=== PATIENT | male | born 1955 | race Two or more races ===

== ENCOUNTER 2024-06-18 09:40 | Inpatient (IN) | payer MEDICAID, SELFPAY ==
[2024-06-18] VITALS (18 sets, daily range): BP systolic 114–160; BP diastolic 74–109; PULSE 61–104; RESP 12–98; TEMP 35.9–36.7; O2SAT 92–99; BMI 25.7
--- NOTE | 2024-06-18 09:46 | EKG_ITS ---
[facility] Test Date: 2024-06-18 Pat Name: IVONNE MARTEL Department: Room: - Gender: Male Medicine Aide: : 1965-04-04 Requested By: ED Temporary Provider Order Number: [id number] Reading MD: ED Temporary Provider Measurements Intervals [place] Rate: 99 P: 59 AK: 184 QRS: -2 QRSD: 172 T: 143 QT: 400 QTc: 514 Interpretive Statements SINUS RHYTHM POSSIBLE LEFT ATRIAL ENLARGEMENT [-0.1mV P-WAVE IN V1/V2] LEFT BUNDLE BRANCH BLOCK [120+ ms QRS DURATION, 80+ ms Q/S IN V1/V2, 85+ ms R IN I/aVL/V5/V6] No previous ECG available for comparison /store/S0/[id number].pdf
--- NOTE | 2024-06-18 09:57 | XR_ITS ---
Examination: PA lateral chest 2 views TECHNIQUE: Upright PA lateral chest 2 views Exam date and time: June 18, 2024 1035 hours INDICATIONS: Chest pain shortness of breath beginning 2 days ago. FINDINGS: Mild prominence cardiac contour Prominent vascular congestion including central vascular engorgement Fluid in the fissures on the lateral view Significant osteopenia IMPRESSION: Early CHF
--- NOTE | 2024-06-18 09:57 | PD.EDRME ---
Rapid Medical Screening Exam RME Arrival date/time: 06/18/24 09:40 59-year-old male presents to the emergency department for complaints of chest pain and pressure Chief Complaint: Chest Pain Vital signs: Vital Signs Temperature 98.1 F 06/18/24 09:47 Pulse Rate 104 H 06/18/24 09:47 Respiratory Rate 19 06/18/24 09:47 Blood Pressure 132/81 H 06/18/24 09:47 Pulse Oximetry (%) 97 06/18/24 09:47 Oxygen Delivery Method Room Air 06/18/24 09:47
--- NOTE | 2024-06-18 10:15 | PC.NURSE ---
in to assess pt. pt with c/o left sided chest pain that started yesterday. states pain is worse with deep breaths and coughing and feels sob at rest. pt without further complaints at this time. orders received and initiated. call light placed within reach. at bedside. plan of care ongoing.
[2024-06-18 10:24] LABS: Basophils % (Auto) 0 % (0-2.5); Eosinophils % (Auto) 1 % (0-10); Hematocrit 36.7 % (41.0-53.0); Immature Granulocytes % (Auto) 0 % (0-0); Immature Granulocytes Auto 0.02 Thou/mm3 (0.00-0.00); Lymphocytes # (Auto) 0.4 Thou/mm3 (1.0-4.8); Lymphocytes % (Auto) 7 % (10-50); Mean Corpuscular HGB Conc 32.7 g/dl (31.0-37.0); Mean Corpuscular Hemoglobin 30.5 pg (25.0-35.0); Mean Corpuscular Volume 93 fL (80-100); Monocytes # (Auto) 0.3 Thou/mm3 (0.0-0.8); Monocytes % (Auto) 6 % (0-12); Neutrophils # (Auto) 4.8 Thou/mm3 (1.8-7.7); Neutrophils % (Auto) 86 % (37-80); Nucleated Red Blood Cell % 0 /100 WBC (0); Platelet Count 161 Thou/mm3 (140-440); RDW Standard Deviation 50.6 fL (35.1-43.9); Red Blood Count 3.93 Miln/mm3 (4.50-5.90); White Blood Count 5.6 Thou/mm3 (3.8-10.6)
[2024-06-18 10:53] LABS: B-Type Natriuretic Peptide 788 pg/mL (0-100)
[2024-06-18 10:54] LABS: Alanine Aminotransferase 11 U/L (10-49); Albumin, Serum 4.2 gm/dL (3.5-5.0); Albumin/Globulin Ratio 1.6 (1.2-2.2); Alkaline Phosphatase 80 U/L (46-116); Anion Gap 7 (7-16); Aspartate Amino Transferase 12 U/L (0-34); BUN/Creatinine Ratio 14 Ratio (12-20); Bilirubin,Total 1.2 mg/dL (0.3-1.2); Blood Urea Nitrogen 22 mg/dL (9-23); Calcium 9.1 mg/dL (8.3-10.6); Calcium (Corrected) 9.1 mg/dL (8.5-10.1); Carbon Dioxide 25.9 mMol/L (20.0-31.0); Chloride 107 mMol/L (98-107); Creatinine (Component) 1.6 mg/dL (0.6-1.3); Globulin 2.6 gm/dL (2.3-3.5); Glucose 316 mg/dL (74-106); Magnesium 1.5 mg/dL (1.6-2.6); Osmolality,Calculated 294 (275-295); Sodium 140 mMol/L (136-145); Total Protein 6.8 gm/dL (5.7-8.2); eGFR 49 See Note
[2024-06-18 10:59] LABS: Troponin I 0.135 ng/mL (0.0-0.045)
--- NOTE | 2024-06-18 11:25 | EDNOTE_ITS ---
ED Chest Pain RME/HPI General Chief Complaint: Chest Pain Stated Complaint: CP AND SOB Time Seen by Provider: 06/18/24 11:01 Arrival date/time: 06/18/24 09:40 RME / HPI RME / HPI narrative: 06/18/24 09:40 59-year-old male presents to the emergency department for complaints of chest pain and pressure DR. RILEY MAIN ED EVALUATION: 59 year old male with history of hypertension and diabetes presents to the ED for complaint of chest pain beginning at 5pm last night and remaining constant since. Described as pressure in sensation that is located most to the center and left side of chest. Initially rated as severe and while in the ED is rated as mild. Accompanied by shortness of breath described as I feel like I'm suffocating , which he reports was exacerbated with laying down and slightly improved with sitting up. Patient mentioned he had experienced chest pain 2 years ago(not to this severity) and was evaluated by claims examiner in [place] who performed an angiogram. States during that time was told one of the arteries was starting to become clogged and given a medication to take for only 2 months. Patient does not recall the name of medications. Denies following up with claims examiner or subsequent episodes of pain since. Denies any anticoagulation use. No fevers, chills, sweats, or recent illness. Related Data Home Medications ?Medication ?Instructions ?Recorded ?Confirmed enalapril maleate 10 mg tablet 10 mg PO Q12H 06/18/24 06/18/24 glyburide 5 mg tablet 5 mg PO BID 06/18/24 5 metformin 850 mg tablet 850 mg PO BID 06/18/2406/18 Allergies Allergy/AdvReac Type Severity Reaction Status Date / Time No Known Allergies Allergy Verified 06/18/24 09:44 Review of Systems Review of Systems Narrative Review of Systems: Gen: No fever, no chills, no weight loss EYES: No discharge, no visual changes, no pain HEENT: No ear pain, no congestion, no sore throat PULM: +shortness of breath, no cough CV: +chest pain, no palpitations, no chest tightness GI: No nausea, no vomiting, no diarrhea, no pain, no constipation : No frequency, no urgency,? no dysuria Musc/skel: No joint pain, no back pain Skin: No rash, no ecchymosis, no lesions Neuro: No weakness, no headache Past Medical History Past Medical History CARDIAC: Positive Hypercholesterolemia; Negative Congestive Heart Failure RESPIRATORY: Negative Chronic Obstructive Pulmonary Disease (COPD) GENITOURINARY: Positive Benign Prostatic Hyperplasia; Negative Renal Disease ENDOCRINE: Positive Diabetes Mellitus Type 2; Negative Diabetes Mellitus Type 1 Social History SMOKING STATUS: Never smoker ED Exam Narrative Physical exam: GENERAL APPEARANCE: AxOx4, no obvious distress, nontoxic appearing HEENT: NC, AT. MMM. EOMI, clear conjunctiva, oropharynx clear. NECK: Supple without lymphadenopathy. No stiffness or restricted ROM. HEART: Normal rate and regular rhythm, normal S1/S1, no m/r/g LUNGS: CTAB, moving air well. No crackles or wheezes are heard. ABDOMEN: Soft, nontender, nondistended with good bowel sounds heard. BACK: No midline C/T/L spine pain or deformity, No CVAT, no obvious deformity. EXTREMITIES: Without cyanosis, clubbing or edema. MUSCULOSKELETAL: FROM of all major joints, no chest tenderness NEUROLOGICAL: Grossly nonfocal. Alert and oriented, moving all 4 extremities. CN not formally tested but appear grossly intact. Skin: Warm and dry without any rash. Course Course Course Narrative: chest xray ordered to help determine etiology of chest pain. Quality Measures none Orders Category Date Time Status Admit to Inpatient Status Routine Admission 06/18/24 11:19 Active Long Winder Tender NOW Care 06/18/24 09:56 Active EKG (ED ONLY) *Do not use* NOW Care 06/18/24 09:46 Completed Notify provider NEEDED Care 06/18/24 11:19 Active Notify provider NOW Care 06/18/24 11:13 Active EKG (ED Only) Stat Exams 06/18/24 09:46 Draft XR chest 2V Stat Exams 06/18/24 09:57 Completed B-Type Natriuretic Peptide Stat Lab 06/18/24 10:17 Completed CBC Stat Lab 06/18/24 10:17 Completed Comprehensive Metabolic Panel Stat Lab 06/18/24 10:17 Completed Magnesium Stat Lab 06/18/24 10:17 Completed Partial Thromboplastin Time AM DRAW Lab 06/20/24 05:00 Ordered Prothrombin Time with INR AM DRAW Lab 06/20/24 05:00 Ordered Troponin I Stat Lab 06/18/24 10:17 Completed Aspirin Med 06/18/24 11:09 Discontinued 325 mg PO X1 ONE Heparin Inj Med 06/18/24 11:12 Discontinued 4,000 unit IV X1 ONE Heparin/D5w 25K 250 ML Ivpb [Heparin in D5w Ivpb] Med 06/18/24 11:15 Active 25,000 unit in 250 ml IV 12 units/kg/hr Reevaluation(s) Reevaluation #1: We reviewed all the results, analysis, and treatment plans. Patient is amenable to admission. Time: 11:10 Vital Signs Vital signs: Vital Signs Temperature 98.1 F 06/18/24 09:47 Pulse Rate 104 H 06/18/24 09:47 Respiratory Rate 19 06/18/24 09:47 Blood Pressure 132/81 H 06/18/24 09:47 Pulse Oximetry (%) 97 06/18/24 09:47 Oxygen Delivery Method Room Air 06/18/24 09:47 Pulse ox is 97% on room air which is adequate. Chest Pain MDM Narrative MDM Narrative:: Mr. Lopez presents to the emergency department with a reported history of coronary artery disease (out of country [facility]) who presents with substernal chest pain with a left bundle branch block, no ST changes in the setting of no pr evious EKGs for comparison. Troponin is also significant for an ischemic event, concerning for an NSTEMI. Case was discussed with cardiology with plans for admission for further workup, catheterization. Domenica Henderson am scribing for and in the presence of Dr. Riley. Patient data External records reviewed:: [facility] previous records (Per EMR review, no previous visits for review ) Clinical information provided by:: patient Social determinants that could affect healthcare access:: none Patient has the following chronic illnesses:: Hypertension, diabetes How is presenting disease/condition affected by chronic disease/condition?: exacerbated by Evaluation data The following diagnostics were reviewed and interpreted by me:: lab results, radiology exam(s) and EKG tracing(s) (EKG @ 09:50 AM. Sinus rhyhtm, rate 99, left bundle branch block. ) Lab and/or radiology exams considered but not ordered:: None Interpretation Summary: Examination: PA lateral chest 2 views Exam date and time: June 18, 2024 1035 hours INDICATIONS: Chest pain shortness of breath beginning 2 days ago. FINDINGS: Mild prominence cardiac contour Prominent vascular congestion including central vascular engorgement Fluid in the fissures on the lateral view Significant osteopenia IMPRESSION: Early CHF Dictated By: Sage Sepulveda MD Signed By: <Electronically signed by Sage Sepulveda MD in [place]> 06/18/24 1114 Medications / Prescriptions Medications or Prescriptions considered but not ordered:: None Medication administrations:: Medication Administration History Acetaminophen (Acetaminophen 325 Mg Tablet) 650 mg PO Q6H PRN PRN Reason: Pain 1-3 or Fever >100.3 Stop: 07/18/24 12:01 Aspirin (Aspirin Ec 81 Mg Tabec) 81 mg PO QDAY KALLI Stop: 07/19/24 08:59 Atorvastatin Calcium (Atorvastatin Calcium 20 Mg Tablet) 80 mg PO HS KALLI Stop: 07/19/24 20:59 Dextrose (Dextrose 50%-Water Inj 50 Ml Syringe) 25 ml IV Q15MIN PRN PRN Reason: BG 50-70 responsive npo pt Stop: 07/18/24 13:15 Dextrose (Dextrose 50%-Water Inj 50 Ml Syringe) 50 ml IV Q15MIN PRN PRN Reason: BG <50 OR BG <70 & pt unresponsive Stop: 07/18/24 13:15 Glucagon (Glucagon Inj 1 Mg Vial) 1 mg IM Q15MIN PRN PRN Reason: BG <70, and no IV access Hydralazine HCl (Hydralazine Inj 20 Mg/Ml Vial) 10 mg IV Q4HR PRN PRN Reason: Hypertension Stop: 07/18/24 16:44 Heparin Sodium/Dextrose (Heparin In D5w Ivpb) 25,000 unit in 250 mls @ 9.36 mls/hr IV .Q24H KALLI; Protocol Stop: 07/02/24 11:14 Last Titration: 06/19/24 06:36 Dose: 16 units/kg/hr, 12.48 mls/hr Documented By: MORENO Co-signed By: WO Titration: 06/18/24 23:34 Dose: 16 units/kg/hr, 12.48 mls/hr Documented By: MORENO Co-signed By: Admin: 06/18/24 17:25 Dose: 12 units/kg/hr, 9.36 mls/hr Documented By: GENARO Co-signed By: EG Insulin Human Lispro (Insulin Lispro (Admelog) 1 Unit/0.01 Ml Unit) 0 unit SC ACHS KALLI; Protocol Stop: 07/18/24 20:59 Last Admin: 06/18/24 20:28 Dose: 3 unit Documented By: MORENO Co-signed By: Metoprolol Tartrate (Metoprolol Tartrate 25 Mg Tablet) 25 mg PO BID KALLI Stop: 07/18/24 13:14 Last Admin: 06/18/24 20:23 Dose: 25 mg Documented By: MORENO Ondansetron HCl (Ondansetron Inj 2 Mg/Ml Inj 2 Ml) 4 mg IV Q6H PRN; Protocol PRN Reason: NAUSEA OR VOMITING Stop: 07/18/24 12:01 Pantoprazole Sodium (Pantoprazole 40 Mg Tablet) 40 mg PO QDAY [facility] Stop: 07/18/24 12:14 Last Admin: 06/18/24 13:22 Dose: 40 mg Documented By: Sennosides (Senna Tablet) 1 tab PO QDAY PRN; Protocol PRN Reason: constipation Stop: 07/18/24 12:01 Discontinued Medications Aspirin (Aspirin 325 Mg Tablet) 325 mg PO X1 ONE Stop: 06/18/24 11:10 Last Admin: 06/18/24 12:02 Dose: 325 mg Documented By: ENRICO Atorvastatin Calcium (Atorvastatin Calcium 20 Mg Tablet) 80 mg PO X1 ONE Stop: 06/18/24 21:01 Last Admin: 06/18/24 20:27 Dose: Not Given Documented By: MORENO Non-Admin Reason: documentted on another one4 Atropine Sulfate (Atropine Sulf Inj 1 Mg/Ml Vial) Confirm Administered Dose 1 mg .ROUTE .STK-MED ONE Stop: 06/18/24 13:49 Last Admin: 06/18/24 17:34 Dose: Not Given Documented By: GENARO Non-Admin Reason: not needed Bivalirudin (Bivalirudin Inj 250 Mg Vial) Confirm Administered Dose 250 mg IV .STK-MED ONE Stop: 06/18/24 13:49 Last Admin: 06/18/24 17:35 Dose: Not Given Documented By: GENARO Non-Admin Reason: not needed Nitroglycerin 50 mg/ Sodium (Chloride 240 ml) 0 mg INTRA-LEONOR X1 ONE Stop: 06/18/24 13:01 Last Admin: 06/18/24 19:23 Dose: Not Given Documented By: MORENO Non-Admin Reason: in ed Diazepam (Diazepam 5 Mg Tablet) Confirm Administered Dose 5 mg .ROUTE .STK-MED ONE Stop: 06/18/24 13:25 Last Admin: 06/18/24 17:34 Dose: Not Given Documented By: GENARO Non-Admin Reason: Duplicate Medication on eMAR Epinephrine HCl (Epinephrine Inj 0.1 Mg/Ml Syringe 10ml) Confirm Administered Dose 1 mg .ROUTE .STK-MED ONE Stop: 06/18/24 13:50 Last Admin: 06/18/24 17:35 Dose: Not Given Documented By: LS Non-Admin Reason: not needed Fentanyl Citrate (Fentanyl Cit Inj 50 Mcg/Ml Amp 2ml) Confirm Administered Dose 100 mcg .ROUTE .STK-MED ONE Stop: 06/18/24 13:49 Last Admin: 06/18/24 17:35 Dose: Not Given Documented By: LS Non-Admin Reason: Duplicate Medication on eMAR Flumazenil (Flumazenil Inj 0.1 Mg/Ml Vial 10 Ml) Confirm Administered Dose 1 mg .ROUTE .STK-MED ONE Stop: 06/18/24 13:50 Last Admin: 06/18/24 17:35 Dose: Not Given Documented By: GENARO Non-Admin Reason: not needed Heparin Sodium (Porcine) (Heparin Sod Inj 5000 Unit/Ml Vial) 4,000 unit IV X1 ONE; Protocol Stop: 06/18/24 11:13 Last Admin: 06/18/24 13:34 Dose: 4,000 unit Documented By: Co-signed By: LENNY Heparin Sodium (Porcine) (Heparin Sod Inj 1000 Unit/Ml Vial 10 Ml) Confirm Adm inistered Dose 10,000 unit .ROUTE .STK-MED ONE Stop: 06/18/24 13:14 Last Admin: 06/18/24 13:22 Dose: 10,000 unit Documented By: Co-signed By: EG Heparin Sodium (Porcine) (Heparin Sod Inj 1000 Unit/Ml Vial 10 Ml) Confirm Administered Dose 20,000 unit .ROUTE .STK-MED ONE Stop: 06/18/24 13:50 Last Admin: 06/18/24 17:35 Dose: Not Given Documented By: LS Non-Admin Reason: Duplicate Medication on eMAR Heparin Sodium (Porcine) (Heparin Sod Inj 5000 Unit/Ml Vial) 4,000 unit IV PRN ONE Stop: 06/18/24 23:37 Last Admin: 06/18/24 23:45 Dose: 4,000 unit Documented By: MORENO Co-signed By: Magnesium Sulfate (Magnesium Sulfate Ivpb) 2 gm in 50 mls @ 25 mls/hr IV X1 ONE Stop: 06/18/24 14:11 Last Infusion: 06/19/24 01:05 Dose: Infused Documented By: Admin: 06/18/24 13:22 Dose: 25 mls/hr Documented By: Sterile Water (Sterile Water) Confirm Administered Dose 10 mls @ ud .ROUTE .STK- MED ONE Stop: 06/18/24 13:50 Last Admin: 06/18/24 17:36 Dose: Not Given Documented By: LS Non-Admin Reason: not needed Magnesium Sulfate (Magnesium Sulfate Ivpb) 4 gm in 50 mls @ 12.5 mls/hr IV X1 ONE Stop: 06/19/24 00:52 Last Admin: 06/18/24 21:24 Dose: 12.5 mls/hr Documented By: MORENO Insulin Human Lispro (Insulin Lispro (Admelog) 1 Unit/0.01 Ml Unit) 0 unit SC Q6HR KALLI; Protocol Stop: 07/18/24 17:59 Lidocaine HCl (Lidocaine Inj Pf 1% 30 Ml Vial) Confirm Administered Dose 30 ml .ROUTE .STK-MED ONE Stop: 06/18/24 13:50 Last Admin: 06/18/24 17:35 Dose: Not Given Documented By: LS Non-Admin Reason: Duplicate Medication on eMAR Metoprolol Tartrate (Metoprolol Tartrate 25 Mg Tablet) 25 mg PO BID [facility] Stop: 07/18/24 20:59 Midazolam HCl (Midazolam Inj 1 Mg/Ml Vial 2 Ml) Confirm Administered Dose 2 mg .ROUTE .STK-MED ONE Stop: 06/18/24 13:49 Last Admin: 06/18/24 17:35 Dose: Not Given Documented By: LS Non-Admin Reason: Duplicate Medication on eMAR Naloxone HCl (Naloxone Inj 0.4 Mg/Ml Vial) Confirm Administered Dose 0.4 mg .ROUTE .STK-MED ONE Stop: 06/18/24 13:49 Last Admin: 06/18/24 17:35 Dose: Not Given Documented By: LS Non-Admin Reason: not needed Phenylephrine HCl (Phenylephrine Inj In Ns 100 Mcg/Ml 10 Ml Syringe) Confirm Administered Dose 1,000 mcg .ROUTE .STK-MED ONE Stop: 06/18/24 13:50 Last Admin: 06/18/24 17:36 Dose: Not Given Documented By: GENARO Non-Admin Reason: not needed Verapamil HCl (Verapamil Inj 2.5 Mg/Ml Vial 2 Ml) Confirm Administered Dose 5 mg .ROUTE .STK-MED ONE Stop: 06/18/24 13:50 Last Admin: 06/18/24 17:36 Dose: Not Given Documented By: GENARO Non-Admin Reason: Duplicate Medication on eMAR See above Consultations Consultation(s) initiated? (list below): Yes Consultation #1 (Physician, Specialty, Details): I spoke with claims examiner Dr. Cisneros. We reviewed the EKG and agrees the patient had a left bundle branch block. No previous EKG's to compare to. He agrees to consult. Will start patient on Aspirin and Heparin. Time: 11:08 Consultation #2 (Physician, Specialty, Details): I spoke with resident Dr. Sweeney working with Dr. Collins. Discussed patients PMHx, HPI, ED course, exam findings, labs, and radiology results. The hospitalist agree to accept the patient for admission. Time: 11:10 Diagnosis Most likely diagnosis given after review of the tests above:: NSTEMI CHF Admission Indicated Admission indicated?: indicated Admission Request Was there a request for admission?: Yes Admission Attestation Admission request attestation: Discussed case with [] from Hospitalist service regarding admission. Discussed patients ED course, exam findings, labs, and radiology results. The Hospitalist [agrees,declines] to accept the patient for admission. Disposition Plan Disposition Plan: Admit Critical Care Time Critical Care Time Critical Care Time: Yes Total Critical Care Time (min.): 35 Attestation: Excluding billable procedures for the rapid response, analysis, management, deliberation with specialist, treatment, and documentation of at the very possible risk of cardiopulmonary decompensation or . Discharge Plan Plan Patient Disposition: Admit Acute Care w/in Hospital Problem List Clinical Impression: Non-ST elevation CA (NSTEMI), CHF (congestive heart failure)
[2024-06-18 11:57] LABS: Partial Thromboplastin Time 25.3 Seconds (22.0-36.0)
[2024-06-18] MEDS: Aspirin 325 MG TABLET PO (12:02)
--- NOTE | 2024-06-18 12:02 | ECHO_ITS ---
Transthoracic Echo Report Ht (in): 64 Wt (lb): 171 Exam Location: Echo Lab Status: Inpatient Component Prep Operator: Chuyita Pepper Indications: Procedure Performed: BP: 134 / 89 HR: 80 Technical Quality: Technically difficult study MEASUREMENTS (Male / Female) Normal Values 2D ECHO LV Diastolic Diameter PLAX 6.1 cm 4.2 - 5.9 / 3.9 - 5.3 cm LV Systolic Diameter PLAX 5.2 cm IVS Diastolic Thickness 0.7 cm 0.6 - 1.0 / 0.6 - 0.9 cm LVPW Diastolic Thickness 0.9 cm 0.6 - 1.0 / 0.6 - 0.9 cm LV Relative Wall Thickness 0.3 LVOT Diameter 1.9 cm LA Systolic Diameter LX 4.0 cm 3.0 - 4.0 / 2.7 - 3.8 cm LV Ejection Fraction MOD BP 31.1 % >= 55 % LV Cardiac Index MOD BP 2912.5 cm?/min?m? LV Ejection Fraction MOD 4C 22.4 % LV Cardiac Index MOD 4C 1857.2 cm?/min?m? LV Ejection Fraction 4C AL 23.7 % LV Cardiac Index 4C AL 2050.8 cm?/min?m? LV Ejection Fraction MOD 2C 39.8 % LV Cardiac Index MOD 2C 4136.5 cm?/min?m? LV Ejection Fraction 2C AL 40.9 % LV Cardiac Index 2C AL 4374.7 cm?/min?m? LA Volume Index 37.3 cm?/m? 16 - 28 cm?/m? M-MODE Aortic Root Diameter MM 2.5 cm AV Cusp Separation MM 1.6 cm DOPPLER AV Peak Velocity 96.1 cm/s AV Peak Gradient 3.7 mmHg AV Mean Gradient 2.0 mmHg AV Velocity Time Integral 18.9 cm LVOT Peak Velocity 56.2 cm/s LVOT Peak Gradient 1.3 mmHg LVOT Velocity Time Integral 10.3 cm LVOT Cardiac Index 1232.7 cm?/min?m? AV Area Cont Eq vti 1.5 cm? AV Area Cont Eq pk 1.7 cm? MV Area PHT 3.7 cm? MR Peak Velocity 376.0 cm/s MR Peak Gradient 56.6 mmHg Mitral E Point Velocity 82.9 cm/s LV E' Lateral Velocity 2.9 cm/s Mitral E to LV E' Lateral Ratio 29.1 LV E' Septal Velocity 6.1 cm/s Mitral E to LV E' Septal Ratio 13.6 TR Peak Velocity 316.0 cm/s TR Peak Gradient 39.9 mmHg PV Peak Velocity 100.0 cm/s PV Peak Gradient 4.0 mmHg FINDINGS Left Ventricle The left ventricular cavity size is mildly increased with normal wall thickness. The ejection fraction is visually estimated at 25-30%. Global left ventricular systolic function is severely decreased. Right Ventricle The right ventricle is normal in size. The right ventricular systolic function is mildly decreased. The estimated right ventricular systolic pressure, 50 mmHg. 10 RAP. Left Atrium The left atrium is normal by two-dimensional, color flow and Doppler imaging with no structural abnormalities, no thrombus formation present. Right Atrium The right atrium is normal by two-dimensional imaging, color flow and Doppler imaging with no structural abnormalities, no thrombus formation present. Atrial Septum The interatrial septum appears normal with no evidence of a shunt. Aorta The aorta is normal by two-dimensional, color flow and Doppler interrogation. Mitral Valve Mild mitral regurgitation. Aortic Valve The aortic valve is trileaflet and normal by two-dimensional, color flow and Doppler interrogation. There is no significant aortic valve regurgitation. Tricuspid Valve There is mild tricuspid valve regurgitation. Pulmonic Valve The pulmonic valve is not well visualized. There is no significant pulmonic valve regurgitation. Vessels The pulmonary artery appears normal. The inferior vena cava pulmonary and hepatic veins appear normal. Pericardium The pericardium is normal by two-dimensional imaging. There is no significant pericardial effusion. CONCLUSIONS Indication: Chest pain LV size is mildly increased with normal wall thickness. Estimated EF 25-30%. Global LV systolic function is severely decreased. RV is normal in size. The RV systolic function is mildly decreased. Estimated RVSP, 50 mmHg. 10 RAP. Mild MR and TR. Darek Cisneros (Electronically Signed) Final Date: 21 June 2024 08:34
[2024-06-18 12:09] LABS: INR 1.1 (0.9-1.3); Prothrombin Time 11.5 Seconds (9.0-12.2)
[2024-06-18 12:42] LABS: Glucose Estimated Average 160 mg/dL (80-131); Hemoglobin A1C 7.2 % Hgb (4.8-6.0)
[2024-06-18] MEDS: HEPARIN SOD INJ 1000 UNIT/ML VIAL 10 ML 10000 UNIT (13:22)
[2024-06-18] MEDS: Magnesium Sulfate 2 GM Ivpb 2 GM/50 ML BAG IV (13:22)
[2024-06-18] MEDS: PANTOPRAZOLE 40 MG TABLET PO (13:22)
[2024-06-18] MEDS: HEPARIN SOD INJ 5000 UNIT/ML VIAL 4000 UNIT IV ×2 (13:34→23:45)
[2024-06-18 13:38] LABS: Troponin I 0.138 ng/mL (0.0-0.045)
--- NOTE | 2024-06-18 14:53 | PD.RESHP ---
Documentation for date of: 06/18/24 Senior resident attestation: The patient came to the ER complaining of chest pain, starting last night, central and pressure-like feeling, associated with orthopnea, keeping him up all night is laying down made him more short of breath. Found to have left bundle branch block, no prior EKG to compare, though patient did state that had an EKG 1 month ago at PCP office which was abnormal and he was referred to a carpenter's helper. Still pending an appointment. Also reported prior history of coronary angiogram 2 years ago in [place], reportedly found blocked vessel and was given medications which patient took for 2 months and then discontinued. Branch Employment Coordinator Dr. Cisneros was consulted. Patient started on heparin drip, started on aspirin, low-dose beta-tony and statin. At the time of evaluation patient reported his chest pain has almost disappeared. #NSTEMI type I? heparin drip, asprin. metoprolol, statin, tentavie plan for angiogram by cardiology. #CHF - stable, monitor for volume overload. Patient evaluated and examined at the bedside, plan of care discussed with rest of the team including my attending physician, except as noted. Quresh PGY2 HPI History of Present Illness History of present illness: CC: Chest Pain & SOB Patient is a 59-year-old male with a past medical history of hypertension, hyperlipidemia, diabetes mellitus type 2 not insulin-dependent (on metformin), history of CAD with previous stent placement failure 2 years ago who presented to the emergency room from home with a chief complaint of chest pain and shortness of breath. Patient stated chest pain began 1 day ago on 06/17/2024 at approximately 5 PM. Patient stated he was walking leisurely in his home without exertion when chest pain on left side began radiating to the right. Chest pain similar to previous experienced. Stated overnight he experienced paroxysmal orthopnea and lower pedal edema. Patient stated he is never experienced on exertion yesterday was the first time he experienced shortness of breath. Denied sick contacts. Denied pyrexia or fevers. ER Course: Vitals 132/81, HR 104, RR 19 JOAQUIN with BUN 22, CR 1.6, and GFR Glucose of 370 EKG: Noted to have left bundle branch block with QRS [address] elevation noted and QT 514 Admitted on 06/18/2024 for typical chest pain likely NSTEM type 1. PMH: -HTN -HLD -DM type 2, non insulin depedent -CAD Surgical -previous angiogram, 2 years ago in [place], per patient, unable to place stent Past Family History: Father-Cancer history Mother-unsure, patient stated old age Home Medication: Metformin 500 mg BID Glyburide Enalapril 10 mg qday Social History: Never smoker Denied Illicit Drug use Denied Alcohol Use Allergies: None Code Status: Full Code Review of Systems Review of Systems Narrative Review of Systems: General appearance: NO weight change, NO fatigue, NO weakness, NO fever, NO chills, NO night sweats, No cough Skin: NO rash, NO itching, NO sores, NO moles HEENT: NO Trauma, NO nausea, NO vomiting, NO visual changes, NO blurry vision, NO double vision, NO tinnitus, NO vertigo, NO ear discharge, NO rhinorrhea, NO stuffiness, NO sneezing, NO allergy, NO epistaxis. NO Hoarseness, NO sore throat, NO swollen neck. Cardiac: NO Palpitations, NO dyspnea on exertion, NO orthopnea, YES paroxysmal nocturnal dyspnea, YES edema Respiratory: YES Shortness of Breath, NO Wheezing, NO Cough, NO Sputum, NO hemoptysis GI:NO appetite, NO nausea, NO vomiting, NO dysphagia, NO changes in bowel frequency, NO stool color, NO diarrhea, NO constipation, NO hemetemesis, NO hemorrhoids, NO melena, NO hematechezia, NO abdominal pain, NO jaundice Renal: NO frequency, NO hesitancy, NO urgency, NO hematuria, NO nocturia, NO incontinence MSK: NO muscle weakness, NO gout, NO arthritis, NO muscle stiffness Neuro: NO headaches, NO tremors, NO weakness, NO paralysis, NO seizures, NO loss of consciousness, NO numbness. Hem: NO anemia, NO easy bruising/bleeding, NO petechiae, NO purpura Endo: NO heat/cold intolerance, NO excessive sweating, NO polyuria, NO polydipsia, NO polyphagia, NO thyroid problems, NO diabetes Pysch: NO mood, NO anxiety, NO depression Exam Vital Signs Temp Pulse Resp BP Pulse Ox O2 Del Method O2 Flow Rate 98.1 F 95 23 H 160/109 H 93 L Room Air 3 06/18/24 12:11 06/18/24 12:49 06/18/24 12:49 06/18/24 12:11 06/18/24 12:49 06/18/24 12:11 06/18/24 12:49 Narrative Exam General Appearance: Alert & Oriented X3, well-nourished male who is lying in bed in no acute distress HEENT: Skull symmetrical and atraumatic. Conjunctivae pin and moist. Pupils equal, round, reactive to light and accommodation (PERRL). External ear without lesion or discharge. Straight, nares patient, mucosa pink, no discharge. No thyroid nodule appreciated. No cervical lymphadenopathy. Cardio: Normal Rate and Rhythm with S1 and S2 heart sounds. No murmurs or extra heart sounds auscultated. No bruits on carotid auscultation. No peripheral edema or cyanosis. Lungs: Symmetric with good expansion. Chest and back non-tender. Breath sounds vesicular without crackles, wheezing or rhonchi Abdomen: Non-tender, Non-distended, Normal Reactive Bowel Sounds Neuro: Alert, cooperative, oriented to person, place, and time. Speech clear. CN grossly intact. Upper motor strength 5/5 and Lower motor strength 5/5. Sensation intact. Results: Labs 06/18/24 10:17 06/18/24 10:17 Labs: Short CBC 06/18/24 Range/Units 10:17 WBC 5.6 (3.8-10.6) Thou/mm3 Hgb 12.0 L (13.5-16.0) g/dL Hct 36.7 L (41.0-53.0) % Plt Count 161 (140-440) Thou/mm3 [facility] 06/18/24 10:17 Sodium 140 Potassium 5.0 Chloride 107 Carbon Dioxide 25.9 BUN 22 Creatinine 1.6 H Glucose 316 H Calcium 9.1 Cardiac Enzymes 06/18/24 06/18/24 Range/Units 10:17 13:03 Troponin I 0.135 H* 0.138 H* (0.0-0.045) ng/mL Liver Function 06/18/24 Range/Units 10:17 Total Bilirubin 1.2 (0.3-1.2) mg/dL AST 12 (0-34) U/L ALT 11 (10-49) U/L Alkaline Phosphatase 80 (46-116) U/L Albumin 4.2 (3.5-5.0) gm/dL Quality Measures Quality Measures none Medications Home Medications and Allergies Allergies Allergy/AdvReac Type Severity Reaction Status Date / Time No Known Allergies Allergy Verified 06/18/24 09:44 Visit Medications Acetaminophen (Acetaminophen 325 Mg Tablet) 650 mg PO Q6H PRN PRN Reason: Pain 1-3 or Fever >100.3 Stop: 07/18/24 12:01 Aspirin (Aspirin Ec 81 Mg Tabec) 81 mg PO QDAY [facility] Stop: 07/19/24 08:59 Atorvastatin Calcium (Atorvastatin Calcium 20 Mg Tablet) 80 mg PO HS [facility] Stop: 07/19/24 20:59 Dextrose (Dextrose 50%-Water Inj 50 Ml Syringe) 25 ml IV Q15MIN PRN PRN Reason: BG 50-70 responsive npo pt Stop: 07/18/24 13:15 Dextrose (Dextrose 50%-Water Inj 50 Ml Syringe) 50 ml IV Q15MIN PRN PRN Reason: BG <50 OR BG <70 & pt unresponsive Stop: 07/18/24 13:15 Glucagon (Glucagon Inj 1 Mg Vial) 1 mg IM Q15MIN PRN PRN Reason: BG <70, and no IV access Heparin Sodium/Dextrose (Heparin In D5w Ivpb) 25,000 unit in 250 mls @ 9.36 mls/hr IV .Q24H [facility]; Protocol Stop: 07/02/24 11:14 Insulin Human Lispro (Insulin Lispro (Admelog) 1 Unit/0.01 Ml Unit) 0 unit SC Q6HR [facility]; Protocol Stop: 07/18/24 17:59 Metoprolol Tartrate (Metoprolol Tartrate 25 Mg Tablet) 25 mg PO BID [facility] Stop: 07/18/24 13:14 Ondansetron HCl (Ondansetron Inj 2 Mg/Ml Inj 2 Ml) 4 mg IV Q6H PRN; Protocol PRN Reason: NAUSEA OR VOMITING Stop: 07/18/24 12:01 Pantoprazole Sodium (Pantoprazole 40 Mg Tablet) 40 mg PO QDAY [facility] Stop: 07/18/24 12:14 Last Admin: 06/18/24 13:22 Dose: 40 mg Sennosides (Senna Tablet) 1 tab PO QDAY PRN; Protocol PRN Reason: constipation Stop: 07/18/24 12:01 Discontinued Medications Aspirin (Aspirin 325 Mg Tablet) 325 mg PO X1 ONE Stop: 06/18/24 11:10 Last Admin: 06/18/24 12:02 Dose: 325 mg Atorvastatin Calcium (Atorvastatin Calcium 20 Mg Tablet) 80 mg PO X1 ONE Stop: 06/18/24 12:10 Nitroglycerin 50 mg/ Sodium (Chloride 240 ml) 0 mg INTRA-LEONOR X1 ONE Stop: 06/18/24 13:01 Heparin Sodium (Porcine) (Heparin Sod Inj 5000 Unit/Ml Vial) 4,000 unit IV X1 ONE; Protocol Stop: 06/18/24 11:13 Last Admin: 06/18/24 13:34 Dose: 4,000 unit Magnesium Sulfate (Magnesium Sulfate Ivpb) 2 gm in 50 mls @ 25 mls/hr IV X1 ONE Stop: 06/18/24 14:11 Last Admin: 06/18/24 13:22 Dose: 25 mls/hr Metoprolol Tartrate (Metoprolol Tartrate 25 Mg Tablet) 25 mg PO BID [facility]ALLI Stop: 07/18/24 20:59 Assessment & Plan Plan Patient is a 59-year-old male with a past medical history of hypertension, hyperlipidemia, diabetes mellitus type 2 not insulin-dependent (on metformin), history of CAD with previous stent placement failure 2 years who was admitted on 06/18/2024 NSTEMI type I with typical chest pain. #NSTEMI, Type I #Triple Vessel Disease #CAD Patient presented with typical chest pain that was no reproduciable to palpation with previous history of CAD, thus NSTEM Type I likely given elevated troponins and left bundle branch block on EKG, no previous EKG, consering for stemi as there is no previous EKG on file. 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 Plan -Heparin ACS -Nitroglycerin -Aspirin 325 mg X 1, Aspirin 81 mg , Atorvastatin 80 mg, Metoprolol tartrate 25 mg BID -Lipid Panel -keep K>4 and Mg >2 -Cath scheduled -Cardiology consulted, Dr. Thaypran #JOAQUIN No creatinine baseline for patient. BUN 22 and Creatinine 1.6 with GFR of 49 and BUN/CR ratio of 14, thus pre-renal joaquin can not be ruled. Acute cardio-renal sydndrome can not be ruled out. CKD can not be ruled out at this time as there is no baseline on file. Plan -Avoid nephrotoxins -Renally Dose medication -Holding off fluids as concern for CHF & patient is able to drink #CHF, HFrEF 25% Pateint deneid history of congestive heart failure. Pateint developed paroxysmal orthopnea overnight and lower pedal edema. No JVD noted on physical exam. BNP 788. Plan -Fluid restrictions 1999 and daily weight checks -Aspiration precautions -work toward GDMT -holding off lasix given transfer #Diabetes Mellitus, Type 2, non insulin dependent Long standing history of diabetes mellitus type 2, with Metformin and Glimepiride as home medication. A1c 7.2 Plan -Sliding Scale #Hypertension Home medication of Enalapril 10 mg once daily, holding given JOAQUIN Plan -Hold Enalapril given JOAQUIN -Hydralazine PRN -Consider starting Amlodipine #Normocytic Anemia Likely anemia of chronic disease form history of DM type II non insulin dependent, continue to monitor Plan -Hgb>7 -No acute intervention planned, consider Iron panel, reti count, and ferritin Health Maintenance: Disp: Pt is currently admitted to floors for further management of NSTEMI, chest pain, and pending transfer now to [facility] for triple vessel disease-->CABG w/ Dr. Pickett FEN: Carb consistent low, pending transfer DVT: heparin ACS Code: Full Code - The patient's plan was discussed with attending Dr. Collins and senior residents Dr. Silvana Bonilla MD PGY1 Internal Medicine
--- NOTE | 2024-06-18 15:20 | PC.CC ---
Addendum entered by Pa You RN 06/18/24 17:30: 1725- Transfer back agreement and corrected face sheet sent to [facility], informed CELY Rosenbaum at [facility]. She stated that they do not have a bed tonight, she will follow up with us tomorrow morning for MD to MD and provide a bed if available. Addendum entered by Pa You RN 06/18/24 16:56: 1650-Authorization obtained from [facility], [id number]. Provided to [facility] who will work on getting a bed for patient. Medical records sent to [place] authorization department per their request at . CD with images collected from radiology and added to packet. Addendum entered by Pa You RN 06/18/24 16:01: 1600- Call from Dr. Cisneros who has spoken to Dr. Pickett at [facility] who has agreed to accept patient for CABG workup. CELY Rosenbaum at [facility] TC informed. Addendum entered by Pa You RN 06/18/24 15:45: 1537- Call to Dr. Cisneros and provided him with contact information for Dr. Pickett at [facility] so that he may consult her for possible transfer for CABG. He will consult her and inform if she is willing to accept. Will await his response at this time. Addendum entered by Pa You RN 06/18/24 15:37: 1530- Call to [facility], spoke with CELY Rosenbaum and provided clinical information. She has requested we initiate authorization from patient's insurance and to have Dr. Cisneros consult their CT surgeon tangible personal property appraiser Dr. Pickett [phone] so that he may present his case and findings from angiogram. Ilsa, will also start working on Auth and open a case for transfer. Original Note: 1510- Received call from Melinda in the dental laboratory manager, per Dr. Cisneros patient will need transfer to [facility] for CABG, patient has multivessel disease. Transfer packet created and imaging CD requested from Roman in the radiology department who stated he would create disc and call when it is ready for fern picker. Transfer packet sent to [facility] via XM fax.
--- NOTE | 2024-06-18 15:28 | PD.CARDCATH ---
Cardiac Cath Procedure Procedure Narrative Date of the procedure 06/18/24 Title of the procedure 1. Left heart catheterization 2. Left coronary angiogram 3. Right coronary angiogram 4. Left ventriculogram 5. Conscious sedation 6. Radiographic interpretation supervision 7. Ultrasound guidance for Right radial access Indication for the procedure 59 yrs old M with with PMx of CAD treated in [place] c/o of typical angina pain ; troponin mildly elevated ; EKG showed LBBB heart cath recommended Procedure This is done in the cardiac lab under continuous electrocardiographic monitoring Intermittent blood pressure monitoring right radial arterial access obtained using modified Seldinger technique 6 [place] radial sheath was placed under ultrasound guidance TIG catheter was used for selective injection of the Left coronary artery TIG cather was used for selective injection of the Right coroanry artery TIG cather was used for LV gram Findings Hemodynamics Left ventricular systolic function is 25% Left ventricular end-diastolic pressure is 20mmHg Gradient across the aortic valve is 0 mmHg Coronary anatomy Right Dominance Left main coronary artery is normal Left anterior descending artery is occluded 100 in the Mid segment Diagonal vessel is 90 lesion Left circumflex artery is non dominant vessel Obtuse marginal vessel is diffuse lesion mild Right coronary artery is dominant - 90 % PL branch Posterior descending artery is luminal irregularities Conclusion sever 3 vessel diseases Recommendation transfer to [facility] for CABG
--- NOTE | 2024-06-18 16:55 | ESDS_ITS ---
Planned Discharge Date 06/18/24 DS: Providers Provider Date of admission: 06/18/24 11:19 Primary care physician: Francis Gold PA-C Admitting Provider: Valentina Collins MD Attending Provider on Admission: Valentina Collins MD Consults: 06/18/24 11:28 Consult to Cardiology Stat Comment: Consulting Provider: Leo Cisneros Attending Provider on DC: Elidia Bonilla MD Discharging Provider: Elidia Bonilla MD DS: Diagnosis Problem List Completed Was Problem List Reviewed/Reconciled?: Yes Hospital Course Hospital Course Hospital course: Summary: Patient is a 59-year-old male with a past medical history of hypertension, hyperlipidemia, history of CAD w/ failed stent placement in [place] per patient history 2 years ago, and diabetes mellitus type 2 not insulin- dependent (on metformin) who was admitted on 06/18/2024 for NSTEMI type I with typical chest pain. ER Visit: Patient arrived to the emergency room from home with chief complain of chest pain radiating across, came on suddenly yesterday evening at approximately 5:00 PM while feeding his chickens in his garden. Pain not worsened by deep palpation. Patient stated this pain is similar to one experienced 2 years ago that required angiogram in [place] with failed stent placement. Complaining of SOB, chest pain, acute onset of paroxysmal orthopnea, and acute onset of lower pedal edema overnight. Full Code. Denied Allergies. Home medication as reported by patient: Metformin 500 mg BID, Glyburide, and Enalapril 10 mg qday. EKG showed sinus rhythm with possible left atrial enlargement, left bundle branch block-QRSd 172-no previous EKG on file. QTc prolongation of 514. Troponin 0.135 and 0.138. Chest x-ray significant for mild cardiac contour, prominent vascular congestion including central vascular engorgement, fluid in fissure on lateral view, significant osteopendia. CMP significant for JOAQUIN with BUN 22, Cr 1.6, GFR of 49, and BUN/Cr of 49-no previous baseline. 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 medication in ER: Aspirin 325 mg X 1 and heparin ACS Hospital Course: Patient was admitted by internal medicine team and started on Metoprolol tartrate 25 mg BID, Nitroglycerin inj 50 gm X 1, Atorvastatin 80 mg , and Aspirin 81 mg to start tomorrow. JOAQUIN avoid nephrotoxins and encourage oral h ydration. Given past medical history of diabetes mellitus type II, non insulin dependent, started on sliding scale Lispro. A1c of 7.2%. Hypertension, currently holding patient's home medication of enalapril given JOAQUIN and hydralazine added as prn, continue to monitor BP. Patient was subsequently taken to optical lab technician by consulting counterperson. Catheterization found to have CHF HFrEF of 25%. Severe Triple Vessel Disease: Left anterior descending artery occluded 100% in the mid segment, diagnoal vessle 90 lesion, obtuse marginal vessel mild lesion, and right coronary artery 90% in PL branch. Transfer for CABG. #NSTEMI, Type I #Triple Vessel Disease #CAD #JOAQUIN #CHF, HFrEF 25% #Diabetes Mellitus, Type 2, non insulin dependent #Hypertension #Normocytic Anemia Disposition: Pending Transfer to [facility] for CABG with cardio-thoracic surgeon. - The patient's plan was discussed with attending Dr. Collins and senior residents Dr. Pina, PGY-2. Elidia Bonilla MD PGY1 Internal Medicine Time Spent with Patient Time attestation: Total time spent providing and/or coordinating discharge services: at least 30 minutes of care and coordination Time spent: Greater than 30 minutes Exam Vital Signs Temp Pulse Resp BP Pulse Ox O2 Del Method O2 Flow Rate 97.2 F 80 20 147/102 H 93 L Room Air 2 06/18/24 15:15 06/18/24 16:45 06/18/24 16:45 06/18/24 16:45 06/18/24 16:45 06/18/24 16:45 06/18/24 16:15 Narrative Exam General Appearance: Alert & Oriented X3, well-nourished male who is lying in bed in mild discomfort HEENT: Skull symmetrical and atraumatic. Conjunctivae pin and moist. Pupils equal, round, reactive to light and accommodation (PERRL). External ear without lesion or discharge. Straight, nares patient, mucosa pink, no discharge. No thyroid nodule appreciated. No cervical lymphadenopathy. Cardio: Normal Rate and Rhythm with S1 and S2 heart sounds. No murmurs, difficult to appreciate given body habitus. No bruits on carotid auscultation. No peripheral edema or cyanosis. Lungs: Symmetric with good expansion. Chest and back non-tender. Breath sounds vesicular without crackles, wheezing or rhonchi Abdomen: Non-tender, Non-distended, Normal Reactive Bowel Sounds Neuro: Alert, cooperative, oriented to person, place, and time. Speech clear. CN grossly intact. Upper motor strength 5/5 and Lower motor strength 5/5. Sensation intact. Discharge Plan Plan Patient Disposition: Xfer Other Facility Pt Being Transferred to: [facility] Prescriptions/Referrals Referrals: Francis Gold PA-C [Primary Care Provider] - Patient/Caregiver Discharge Instructions Print Language: Nepalese Stand Alone Forms: Alexandra Award Info., Patient Portal Info Letter Quality Discharge Quality Measures VTE prophylaxis
[2024-06-18] MEDS: Heparin/D5w 25K 250 ML Ivpb 25,000 UNIT/250 ML BAG 9.36 UNIT IV (17:25)
--- NOTE | 2024-06-18 18:45 | PC.NURSE ---
Pt arrived on unit to room 262, pt a/o on 3L NC, s/p angio, dressing to R radial CD&I, heparin drip running at 12Units/kg/hr, no chest pain or shortness of breath noted or reported. pt settled in room, placed on director cardiac, report given at bedside to oncoming nurse.
--- NOTE | 2024-06-18 18:55 | PC.NURSE ---
Report given to CELY Morris. patient A&O x4. VSS. Patient transferred to tele via gurney. Dressing clean, dry, and intact. No signs of bleeding or hematoma.
--- NOTE | 2024-06-18 19:52 | PC.NURSE ---
notified of patient having a 7 beat vtach and possible afib, normal sinus rthym at this time. will come to bedside to see patient
[2024-06-18 20:21] LABS: Troponin I 0.145 ng/mL (0.0-0.045)
[2024-06-18] MEDS: METOPROLOL TARTRATE 25 MG TABLET PO (20:23)
[2024-06-18] MEDS: INSULIN LISPRO (AdmeLOG) 1 UNIT/0.01 ML UNIT SC (20:28)
[2024-06-18] MEDS: Magnesium Sulfate 4 GM Ivpb 4 GM/50 ML BAG IV (21:24)
[2024-06-18 23:29] LABS: Partial Thromboplastin Time 32.4 Seconds (22.0-36.0)
[2024-06-19] VITALS (7 sets, daily range): BP systolic 105–134; BP diastolic 66–95; PULSE 58–80; RESP 18–23; TEMP 35.9–36.3; O2SAT 93–99; BMI 25.6
[2024-06-19 01:11] LABS: Troponin I 0.151 ng/mL (0.0-0.045)
[2024-06-19 05:43] LABS: Basophils % (Auto) 1 % (0-2.5); Eosinophils # (Auto) 0.1 Thou/mm3 (0.0-0.5); Eosinophils % (Auto) 2 % (0-10); Immature Granulocytes % (Auto) 0 % (0-0); Immature Granulocytes Auto 0.01 Thou/mm3 (0.00-0.00); Lymphocytes # (Auto) 0.6 Thou/mm3 (1.0-4.8); Lymphocytes % (Auto) 10 % (10-50); Mean Corpuscular HGB Conc 31.6 g/dl (31.0-37.0); Mean Corpuscular Hemoglobin 30.2 pg (25.0-35.0); Mean Corpuscular Volume 96 fL (80-100); Monocytes # (Auto) 0.4 Thou/mm3 (0.0-0.8); Monocytes % (Auto) 6 % (0-12); Neutrophils # (Auto) 4.9 Thou/mm3 (1.8-7.7); Neutrophils % (Auto) 81 % (37-80); Nucleated Red Blood Cell % 0 /100 WBC (0); Platelet Count 150 Thou/mm3 (140-440); RDW Standard Deviation 52.5 fL (35.1-43.9); Red Blood Count 3.97 Miln/mm3 (4.50-5.90)
[2024-06-19 06:07] LABS: Partial Thromboplastin Time 61.9 Seconds (22.0-36.0)
[2024-06-19 06:20] LABS: Alanine Aminotransferase 9 U/L (10-49); Albumin/Globulin Ratio 1.7 (1.2-2.2); Alkaline Phosphatase 77 U/L (46-116); Anion Gap 8 (7-16); Aspartate Amino Transferase 11 U/L (0-34); BUN/Creatinine Ratio 16 Ratio (12-20); Bilirubin,Total 1.1 mg/dL (0.3-1.2); Blood Urea Nitrogen 24 mg/dL (9-23); Calcium 9.2 mg/dL (8.3-10.6); Calcium (Corrected) 9.2 mg/dL (8.5-10.1); Carbon Dioxide 26.1 mMol/L (20.0-31.0); Cardiac Risk Estimate 5.6 RATIO (4.0-6.7); Chloride 109 mMol/L (98-107); Cholesterol 190 mg/dL (132-200); Creatinine (Component) 1.5 mg/dL (0.6-1.3); Globulin 2.4 gm/dL (2.3-3.5); Glucose 190 mg/dL (74-106); HDL Cholesterol 34 mg/dL (40-60); LDL Cholesterol,Calculated 139 mg/dL (0-130); Magnesium 2.3 mg/dL (1.6-2.6); Osmolality,Calculated 293 (275-295); Phosphorous 3.2 mg/dL (2.4-5.1); Potassium 4.5 mMol/L (3.4-5.1); Sodium 143 mMol/L (136-145); Total Protein 6.4 gm/dL (5.7-8.2); Triglycerides 86 mg/dL (30-150); eGFR 50 See Note
--- NOTE | 2024-06-19 08:31 | PC.CC ---
Addendum entered by Pepper Keita RN 06/19/24 11:04: Zenia called back and acceoted patient again with same information, Reach set up to transfer patient becuase of Heparin drip, eta 1230, Charge nurse made aware, charge nurse given both charts with cd. Addendum entered by Pepper Keita RN 06/19/24 10:32: [employer] called back and stated the insurance was not matching up and acceptance taken away at this time, patients insurance cards faxed to [facility] will wait for call back Addendum entered by Pepper Keita RN 06/19/24 10:09: Patient is accepted under Dr. Simon to [facility] by [facility] patient to go to fourth tower room 16, report to be called to [phone] at [phone] Addendum entered by Pepper Keita RN 06/19/24 09:46: Jordyn from [facility] now speaking to Dr. Hawley Addendum entered by Pepper Keita RN 06/19/24 08:51: Faxed dc summary and med list to [facility], Kaitlin attempted to call Dr. Hawley with no answer, TC also attempted to get ahold of Dr. Hawley with no success will try again. Original Note: Left for Jaxson for an update
[2024-06-19] MEDS: PANTOPRAZOLE 40 MG TABLET PO (09:17)
[2024-06-19] MEDS: ASPIRIN EC 81 MG TABEC PO (09:17)
[2024-06-19] MEDS: INSULIN LISPRO (AdmeLOG) 1 UNIT/0.01 ML UNIT SC ×2 (09:18→12:22)
[2024-06-19] MEDS: METOPROLOL TARTRATE 25 MG TABLET PO (09:18)
--- NOTE | 2024-06-19 09:40 | ESPR_ITS ---
Documentation for date of: 06/19/24 Subjective Subjective Interval history: Patient was seen and examined at bedside. No acute overnight events. Labs and vitals were reviewed, patient currently hemodynamically stable, currently on heparin drip, renal panel slightly improved, patient did adequate urine output. Will continue current management, pending transfer to [facility]. Exam Vital Signs Temp Pulse Resp BP Pulse Ox O2 Del Method O2 Flow Rate 97.3 F 80 18 134/89 H 99 Nasal Cannula 2 06/19/24 08:00 06/19/24 09:18 06/19/24 08:46 06/19/24 09:18 06/19/24 08:46 06/19/24 08:00 06/19/24 08:00 Narrative Exam GENERAL: no acute distress, AAO x3, well nourished. HEENT: Head AT/ NC. Mucous membranes moist. PERRL. NECK: Supple, no lymphadenopathy, no carotid bruits. CARDIOVASCULAR: RRR. Normal S1/S2, No m/r/g. No pitting edema of bilateral LEs. RESPIRATORY: CTAB. No wheezing, rhonchi, crackles. GASTROINTESTINAL: Abdomen soft, non tender no palpable masses. Bowel sounds present in all 4 quadrants. MUSCULOSKELETAL:? No cyanosis or edema, no visible joint swelling. NEUROLOGICAL: CN II-XII grossly intact. No focal deficits. Sensation intact, symmetric. PSYCHIATRIC: Awake and alert, not agitated, normal mood and affect. INTEGUMENTARY: No obvious rashes, no jaundice, normal turgor. Objective Labs 06/19/24 05:18 06/19/24 05:18 Labs: Laboratory Results - last 24 hr 06/18/24 06/18/24 06/18/24 10:17 13:03 19:21 WBC 5.6 RBC 3.93 L Hgb 12.0 L Hct 36.7 L MCV 93 MCH 30.5 MCHC 32.7 RDW Std Deviation 50.6 H Plt Count 161 Neut % (Auto) 86 H Lymph % (Auto) 7 L Carlton % (Auto) 6 Eos % (Auto) 1 Baso % (Auto) 0 Neut # (Auto) 4.8 Lymph # (Auto) 0.4 L Carlton # (Auto) 0.3 Eos # (Auto) 0.0 Baso # (Auto) 0.0 Immature Gran # (Auto) 0.02 H Absolute Nucleated RBC 0.00 Immature Gran % 0 Nucleated RBC % 0 PT 11.5 INR 1.1 APTT 25.3 Sodium 140 Potassium 5.0 Chloride 107 Carbon Dioxide 25.9 Anion Gap 7 BUN 22 Creatinine 1.6 H Estim Creat Clear Calc Not Performed. eGFR 49 L BUN/Creatinine Ratio [address] Glu mg/dL 160 H Hemoglobin A1c 7.2 H Calculated Osmolality 294 Calcium 9.1 Corrected Calcium 9.1 Phosphorus Magnesium 1.5 L Total Bilirubin 1.2 AST 12 ALT 11 Alkaline Phosphatase 80 Troponin I 0.135 H* 0.138 H* 0.145 H* B-Natriuretic Peptide 788 H* Total Protein 6.8 Albumin 4.2 Globulin 2.6 Albumin/Globulin Ratio 1.6 Triglycerides Cholesterol LDL Cholesterol, Calc HDL Cholesterol Cholesterol/HDL Ratio 06/18/24 06/19/24 06/19/24 23:08 00:34 05:18 WBC 6.0 RBC 3.97 L Hgb 12.0 L Hct 38.0 L MCV 96 MCH 30.2 MCHC 31.6 RDW Std Deviation 52.5 H Plt Count 150 Neut % (Auto) 81 H Lymph % (Auto) 10 Carlton % (Auto) 6 Eos % (Auto) 2 Baso % (Auto) 1 Neut # (Auto) 4.9 Lymph # (Auto) 0.6 L Carlton # (Auto) 0.4 Eos # (Auto) 0.1 Baso # (Auto) 0.0 Immature Gran # (Auto) 0.01 H Absolute Nucleated RBC 0.00 Immature Gran % 0 Nucleated RBC % 0 PT INR APTT 32.4 61.9 H D Sodium 143 Potassium 4.5 D Chloride 109 H Carbon Dioxide 26.1 Anion Gap 8 BUN 24 H Creatinine 1.5 H Estim Creat Clear Calc 45.0 L eGFR 50 L BUN/Creatinine Ratio [address]ucose [address] Glu mg/dL Hemoglobin A1c Calculated Osmolality 293 Calcium 9.2 Corrected Calcium 9.2 Phosphorus 3.2 Magnesium 2.3 Total Bilirubin 1.1 AST 11 ALT 9 L Alkaline Phosphatase 77 Troponin I 0.151 H* B-Natriuretic Peptide Total Protein 6.4 Albumin 4.0 Globulin 2.4 Albumin/Globulin Ratio 1.7 Triglycerides 86 Cholesterol 190 LDL Cholesterol, Calc 139 H HDL Cholesterol 34 L Cholesterol/HDL Ratio 5.6 Quality Measures Quality Measures VTE prophylaxis Advance care planning discussed with:: patient Assessment & Plan Assessment Current Active Medications: Generic Name Dose Route Start Last Admin Trade Name Freq PRN Reason Stop Dose Admin Acetaminophen 650 mg 06/18/24 12:02 Acetaminophen 325 Mg Tablet PO 07/18/24 12:01 Q6H PRN Pain 1-3 or Fever >100.3 Aspirin 81 mg 06/19/24 09:00 06/19/24 09:17 Aspirin Ec 81 Mg Tabec PO 07/19/24 08:59 81 mg QDAY KALLI Administration Atorvastatin Calcium 80 mg 06/19/24 21:00 Atorvastatin Calcium 20 Mg Tablet PO 07/19/24 20:59 HS KALLI Dextrose 25 ml 06/18/24 13:16 Dextrose 50%-Water Inj 50 Ml Syringe IV 07/18/24 13:15 Q15MIN PRN BG 50-70 responsive npo pt Dextrose 50 ml 06/18/24 13:16 Dextrose 50%-Water Inj 50 Ml Syringe IV 07/18/24 13:15 Q15MIN PRN BG <50 OR BG <70 & pt unresponsive Glucagon 1 mg 06/18/24 13:16 Glucagon Inj 1 Mg Vial IM Q15MIN PRN BG <70, and no IV access Hydralazine HCl 10 mg 06/18/24 16:45 Hydralazine Inj 20 Mg/Ml Vial IV 07/18/24 16:44 Q4HR PRN Hypertension Heparin Sodium/Dextrose 25,000 unit in 250 mls @ 9.36 mls/hr 06/18/24 11:15 06/19/24 06:36 Heparin In D5w Ivpb IV 07/02/24 11:14 16 units/kg/hr .Q24H KALLI 12.48 mls/hr Titration Protocol 12 UNITS/KG/HR Insulin Human Lispro 0 unit 06/18/24 21:00 06/19/24 09:18 Insulin Lispro (Admelog) 1 Unit/0.01 Ml Unit SC 07/18/24 20:59 2 unit ACHS KALLI Administration Protocol Metoprolol Tartrate 25 mg 06/18/24 13:16 06/19/24 09:18 Metoprolol Tartrate 25 Mg Tablet PO 07/18/24 13:14 25 mg BID KALLI Administration Ondansetron HCl 4 mg 06/18/24 12:02 Ondansetron Inj 2 Mg/Ml Inj 2 Ml IV 07/18/24 12:01 Q6H PRN NAUSEA OR VOMITING Protocol Pantoprazole Sodium 40 mg 06/18/24 12:15 06/19/24 09:17 Pantoprazole 40 Mg Tablet PO 07/18/24 12:14 40 mg QDAY KALLI Administration Sennosides 1 tab 06/18/24 12:02 Senna Tablet PO 07/18/24 12:01 QDAY PRN constipation Protocol Plan The patient is a 59-year-old male with a past medical history of hypertension and diabetes who presented to the Emergency Department with a chief complaint of chest pain. The pain began yesterday during physical activity and progressively worsened. He describes the painas typical chest pain, substernal, primarily located on the left side, and radiating to the right chest and left arm. He denies any associated nausea or radiation to the neck or back. The pain was associated with shortness of breath and rated 9/10 in intensity. Symptoms were relieved with rest and nitroglycerin, and exacerbated by physical exertion. On presentation, the patient was hemodynamically stable. Initial lab work revealed elevated troponin levels. EKG showed a new-onset left bundle branch block (no prior EKG available for comparison). The patient was managed per ACS protocol, including initiation of a heparin drip. Cardiology was consulted, and the patient was taken emergently to the cardiac catheterization lab for further evaluation and management. Operative report: Left main coronary artery is normal Left anterior descending artery is occluded 100 in the Mid segment Diagonal vessel is 90 lesion Left circumflex artery is non dominant vessel Obtuse marginal vessel is diffuse lesion mild Right coronary artery is dominant - 90 % PL branch Posterior descending artery is luminal irregularities. Conclusion Per cardio-severe triple-vessel disease. Recommendation-patient will need to be transferred to [facility] for CABG. Patient was accepted by cardiothoracic surgeon at [facility]. Pending transfer. #Acute coronary syndrome #Triple-vessel disease #HFrEF 25% #DM type II -Current management: Continue heparin drip, aspirin, Lipitor, beta-tony. Control BP and BS. Close monitoring hemodynamics. -pending transfer to [facility]. Patient care was discussed with attending physician Dr. Chandan Sweeney MD PGY-2 I have carefully reviewed this document. Due to imperfections in the voice software, there could be grammatical errors including phonetic/typographic errors. This in no way compromises the medical care the patient is receiving Attending Provider Attestation/Addendum I reviewed labs, imaging, EKG, home medications and prior available records. Face to face evaluation was performed by me. I have personally examined the patient and discussed assessment and plan with the IM team. I reviewed the resident note and agree with the plan with exceptions as below. Chest pain at rest Type I non-STEMI HFrEF EF 25% JOAQUIN versus CKD stage IIIa Uncontrolled diabetes mellitus with hyperglycemia Essential hypertension Patient has multiple risk factors for CAD And presented with typical chest pain. Status post cardiac catheterization that showed severe multivessel CAD for which cardiology recommended CABG Discussed with the transfer center at [facility]: Will transfer the patient for CABG. Patient was accepted Continue aspirin and atorvastatin Continue heparin drip Monitor kidney function. Avoid nephrotoxin. Renally dose medications Held lisinopril in the setting of possible JOAQUIN Added insulin Lantus 5 units in addition to sliding scale insulin. Monitor fingersticks Time spent is 40 minutes. More than 50% of the time was spent on patient education and coordination of care.
--- NOTE | 2024-06-19 09:50 | ESDS_ITS ---
Planned Discharge Date 06/19/24 DS: Providers Provider Date of admission: 06/18/24 11:19 Primary care physician: Francis Gold PA-C Admitting Provider: Valentina Collins MD Attending Provider on Admission: Valentina Collins MD Consults: 06/18/24 11:28 Consult to Cardiology Stat Comment: Consulting Provider: Leo Cisneros Attending Provider on DC: Kiara Sweeney MD Discharging Provider: Kiara Sweeney MD DS: Diagnosis Problem List Completed Was Problem List Reviewed/Reconciled?: Yes Hospital Course Hospital Course Hospital course: The patient is a 59-year-old male with a past medical history of hypertension and diabetes who presented to the Emergency Department with a chief complaint of chest pain. The pain began yesterday during physical activity and progressively worsened. He describes the painas typical chest pain, substernal, primarily located on the left side, and radiating to the right chest and left arm. He denies any associated nausea or radiation to the neck or back. The pain was associated with shortness of breath and rated 9/10 in intensity. Symptoms were relieved with rest and nitroglycerin, and exacerbated by physical exertion. On presentation, the patient was hemodynamically stable. Initial lab work revealed elevated troponin levels. EKG showed a new-onset left bundle branch block (no prior EKG available for comparison). The patient was managed per ACS protocol, including initiation of a heparin drip. Cardiology was consulted, and the patient was taken emergently to the cardiac catheterization lab for further evaluation and management. Operative report: Left main coronary artery is normal Left anterior descending artery is occluded 100 in the Mid segment Diagonal vessel is 90 lesion Left circumflex artery is non dominant vessel Obtuse marginal vessel is diffuse lesion mild Right coronary artery is dominant - 90 % PL branch Posterior descending artery is luminal irregularities. Conclusion Per cardio-severe triple-vessel disease. Recommendation-patient will need to be transferred to [facility] for CABG. Patient was accepted by cardiothoracic surgeon at [facility]. Pending transfer. #Acute coronary syndrome #Triple-vessel disease #HFrEF 25% #DM type II -Current management: Continue heparin drip, aspirin, Lipitor, beta-tony. Control BP and BS. Close monitoring hemodynamics. -pending transfer to [facility]. Patient care was discussed with attending physician Dr. Chandan Sweeney MD PGY-2 I have carefully reviewed this document. Due to imperfections in the voice software, there could be grammatical errors including phonetic/typographic errors. This in no way compromises the medical care the patient is receiving Time Spent with Patient Time attestation: Total time spent providing and/or coordinating discharge services: Time spent: Greater than 30 minutes Exam Vital Signs Temp Pulse Resp BP Pulse Ox O2 Del Method O2 Flow Rate 97.3 F 80 18 134/89 H 99 Nasal Cannula 2 06/19/24 08:00 06/19/24 09:18 06/19/24 08:46 06/19/24 09:18 06/19/24 08:46 06/19/24 08:00 06/19/24 08:00 Narrative Exam GENERAL: no acute distress, AAO x3, well nourished. HEENT: Head AT/ NC. Mucous membranes moist. PERRL. NECK: Supple, no lymphadenopathy, no carotid bruits. CARDIOVASCULAR: RRR. Normal S1/S2, No m/r/g. No pitting edema of bilateral LEs. RESPIRATORY: CTAB. No wheezing, rhonchi, crackles. GASTROINTESTINAL: Abdomen soft, non tender no palpable masses. Bowel sounds present in all 4 quadrants. MUSCULOSKELETAL:? No cyanosis or edema, no visible joint swelling. NEUROLOGICAL: CN II-XII grossly intact. No focal deficits. Sensation intact, symmetric. PSYCHIATRIC: Awake and alert, not agitated, normal mood and affect. INTEGUMENTARY: No obvious rashes, no jaundice, normal turgor. Discharge Plan Plan Patient Disposition: Xfer Other Facility Pt Being Transferred to: [facility] Service Needed for Transfer: Cardiovascular/Thoracic Surg Prescriptions/Referrals Prescriptions/Med Rec: New atorvastatin 20 mg Tablet 80 mg PO HS Qty: 0 0RF insulin glargine [Lantus U-100 Insulin] 100 unit/mL Solution 5 unit SCi QDAY Qty: 0 0RF aspirin [Ecotrin Low Strength] 81 mg Tablet,Delayed Release (Dr/Ec) 81 mg PO QDAY Qty: 0 0RF pantoprazole 40 mg Tablet,Delayed Release (Dr/Ec) 40 mg PO QDAY Qty: 0 0RF insulin lispro 100 unit/mL Solution 0 unit SCi ACHS Qty: 0 0RF metoprolol tartrate 25 mg Tablet 25 mg PO BID Qty: 0 0RF heparin (porcine) in 5 % dex 25,000 unit/250 mL(100 unit/mL) Parenteral Solution 25,000 unit IV .Q24H Qty: 0 0RF Held enalapril maleate 10 mg tablet 10 mg PO Q12H Hold Instructions: Resume on 06/27/24. Till repeat BMP in 1 week No Action glyburide 5 mg tablet 5 mg PO BID metformin 850 mg tablet 850 mg PO BID Referrals: Francis Gold PA-C [Primary Care Provider] - Patient/Caregiver Discharge Instructions Print Language: Nepali Stand Alone Forms: Alexandra Award Info., Patient Portal Info Letter Discharge Order Discharge Orders: Discharge (Routine); Ordered 06/18/24 Ordered By: Kiara Sweeney Quality Discharge Quality Measures VTE prophylaxis Attestestation Attestation I reviewed labs, imaging, EKG, home medications and prior available records. Face to face evaluation was performed by me. I have personally examined the patient and discussed assessment and plan with the IM team. I reviewed the resident note and agree with the plan with exceptions as below. Chest pain at rest Type I non-STEMI HFrEF EF 25% JOAQUIN versus CKD stage IIIa Uncontrolled diabetes mellitus with hyperglycemia Essential hypertension Patient has multiple risk factors for CAD And presented with typical chest pain. Status post cardiac catheterization that showed severe multivessel CAD for which cardiology recommended CABG Discussed with the transfer center at [facility]: Will transfer the patient for CABG. Patient was accepted Continue aspirin and atorvastatin Continue heparin drip Monitor kidney function. Avoid nephrotoxin. Renally dose medications Held lisinopril in the setting of possible JOAQUIN Added insulin Lantus 5 units in addition to sliding scale insulin. Monitor fingersticks Time spent is 40 minutes. More than 50% of the time was spent on patient education and coordination of care.
[2024-06-19] MEDS: INSULIN GLARGINE (Lantus) 5 UNIT/0.05 ML (PER 5 UNITS) SC (10:40)
--- NOTE | 2024-06-19 10:53 | PD.IMCONS ---
HPI Data of Consult Requesting Physician: Valentina Collins MD Primary Care Provider: Francis Gold PA-C Consult Narrative History of present illness: This is a is a 59-year-old male with a past medical history of hypertension, hyperlipidemia, diabetes mellitus type 2 not insulin-dependent (on metformin), history of CAD with previous stent placement failure 2 years ago in [place] patient is seen in the emergency room with ongoing chest pain overnight Initially patient's troponin was positive Review of patient's typical history of retrosternal chest pain with some diaphoresis could be due to type II proceed to do cardiac catheterization and coronary angiogram EKG shows sinus rhythm with left bundle branch block morphology Troponin is 0.13 cc:: cc: Valentina Collins MD Meds Home Medications and Allergies Home Medications ?Medication ?Instructions ?Recorded ?Confirmed ?Type enalapril maleate 10 mg tablet 10 mg PO Q12H 06/18/24 06/18/24 History glyburide 5 mg tablet 5 mg PO BID 06/18/24 06/18/24 History metformin 850 mg tablet 850 mg PO BID 06/18/24 06/18/24 History Allergies Allergy/AdvReac Type Severity Reaction Status Date / Time No Known Allergies Allergy Verified 06/18/24 09:44 Exam Vital Signs Temp Pulse Resp BP Pulse Ox O2 Del Method O2 Flow Rate 97.3 F 79 18 134/89 H 99 Nasal Cannula 2 06/19/24 08:00 06/19/24 10:36 06/19/24 08:46 06/19/24 09:18 06/19/24 08:46 06/19/24 08:00 06/19/24 08:00 Routine HEENT Exam Head: Present normocephalic and atraumatic Eye: Present EOMI and PERRL ENT: Present mucous membranes moist Routine Neck Exam Neck: Present supple and trachea midline Routine Respiratory Exam Respiratory: Present chest non-tender, lungs clear, normal breath sounds and no resp distress Routine Cardiovascular Exam Cardiovascular: Present RRR Routine Abdominal Exam Abdominal: Present soft and normoactive bowel sounds Routine Extremities Exam Extremities: Present full ROM Routine Skin Exam Skin: Present intact, dry and warm Routine Neurological Exam Neurological: Present alert, oriented X3 and CN II-XII intact Routine Psychiatric Exam Psychiatric: Present normal affect and normal thought process Results Labs 06/19/24 05:18 06/19/24 05:18 Labs: Short CBC 06/19/24 Range/Units 05:18 WBC 6.0 (3.8-10.6) Thou/mm3 Hgb 12.0 L (13.5-16.0) g/dL Hct 38.0 L (41.0-53.0) % Plt Count 150 (140-440) Thou/mm3 BMP 06/18/24 06/19/24 10:17 05:18 Sodium 140 143 Potassium 5.0 4.5 D Chloride 107 109 H Carbon Dioxide 25.9 26.1 BUN 22 24 H Creatinine 1.6 H 1.5 H Glucose 316 H 190 H D Calcium 9.1 9.2 Cardiac Enzymes 06/18/24 06/18/24 06/18/24 Range/Units 10:17 13:03 19:21 Troponin I 0.135 H* 0.138 H* 0.145 H* (0.0-0.045) ng/mL 06/19/24 Range/Units 00:34 Troponin I 0.151 H* (0.0-0.045) ng/mL Liver Function 06/18/24 06/19/24 Range/Units 10:17 05:18 Total Bilirubin 1.2 1.1 (0.3-1.2) mg/dL AST 12 11 (0-34) U/L ALT 11 9 L (10-49) U/L Alkaline Phosphatase 80 77 (46-116) U/L Albumin 4.2 4.0 (3.5-5.0) gm/dL Assessment and Plan Assessment and plan (1) CHF (congestive heart failure): Status: Acute (2) Non-ST elevation ND (NSTEMI): Status: Acute (3) Coronary artery disease: Status: Acute (4) Hypertension: Status: Acute (5) Hyperlipidemia: Status: Acute Additional Assessment & Plan Additional Plan: Continue aspirin heparin drip Patient's coronary angiogram revealed severe triple-vessel disease with reduced ejection fraction Patient will be transferred to [facility] for further treatment with coronary artery bypass surgery
--- NOTE | 2024-06-19 11:28 | PC.NURSE ---
called report to ADRIANNA Lira [phone]
[2024-06-19 12:24] LABS: Partial Thromboplastin Time 49.5 Seconds (22.0-36.0)
== END 2024-06-19 12:30 | disposition other institution (70) | DRG 190 ==
LOC: SERX 11:38 → SERHOLD 11:41 → S2NX 18:48
PROVIDERS: Internal Medicine; Nurse Practitioner Primary Care; Admitting Provider Internal Medicine; Emergency Provider Emergency Medicine; PCP Physician Assistant; Visit Provider Internal Medicine
PROC: 4A023N7 Measurement of Cardiac Sampling and Pressure, Left Heart, Percutaneous Approach (ICD-10-PCS; principal; 2024-06-18 14:00)
DX: I21.4 Non-ST elevation (NSTEMI) myocardial infarction (principal); N40.0 Benign prostatic hyperplasia without lower urinary tract symptoms; I13.0 Hypertensive heart and chronic kidney disease with heart failure and stage 1 through stage 4 chronic kidney disease, or unspecified chronic kidney disease; I50.20 Unspecified systolic (congestive) heart failure; N17.9 Acute kidney failure, unspecified; N18.9 Chronic kidney disease, unspecified; I44.7 Left bundle-branch block, unspecified; E11.22 Type 2 diabetes mellitus with diabetic chronic kidney disease; E11.65 Type 2 diabetes mellitus with hyperglycemia; D63.1 Anemia in chronic kidney disease; E78.5 Hyperlipidemia, unspecified; I25.10 Atherosclerotic heart disease of native coronary artery without angina pectoris; Z79.82 Long term (current) use of aspirin; Z79.899 Other long term (current) drug therapy; Z95.5 Presence of coronary angioplasty implant and graft; Z79.84 Long term (current) use of oral hypoglycemic drugs
CPT/HCPCS: 36415; 71046; 80053; 80061; 83036; 83735; 83880; 84100; 84443; 84484; 85025; 85610; 85730; 93005; 93306; 99152; 99291; A4216; A4649; C1769; C1887; C1894; J0171; J0461; J0583; J1643; J1644; J1815; J2250; J2310; J2371; J3010; J3475; J3490; Q9967; A9270